=== PATIENT | male | born 1950 | race Caucasian/White ===

== ENCOUNTER 2021-11-29 09:16 | Emergency (ER) | payer BC ==
[~2021-11-29] VITALS: Ht 185.4 cm; Wt 86.2 kg
[2021-11-29] MEDS ORDERED: IBUPROFEN 600 MG TABLET ONE (09:49)
--- NOTE | 2021-11-29 09:51 | NUR ---
MEDICATED PER MD ORDER.
[2021-11-29] MEDS ORDERED: IBUP-1955 PO (09:55)
[2021-11-29] MEDS ORDERED: IBUPROFEN 600 MG TABLET PO ONE (10:00)
[2021-11-29 10:01] VITALS: BP 148/70
== END 2021-11-29 10:02 | disposition home or self-care (01) ==
LOC: ER 09:16
DX: I83.893 Varicose veins of bilateral lower extremities with other complications (principal); I83.812 Varicose veins of left lower extremity with pain; Z86.718 Personal history of other venous thrombosis and embolism; I10 Essential (primary) hypertension; Z79.01 Long term (current) use of anticoagulants
CPT/HCPCS: A4663